=== PATIENT | male | born 1975 | race Two or more races ===

== ENCOUNTER 2023-06-20 05:25 | Inpatient (IN) | payer OTHER ==
[~2023-06-20] VITALS: Ht 170.2 cm; Wt 103.9 kg
[~2023-06-20 05:25] MED LIST: DULERA 100 MCG/13 GM; FENOFIBRATE130 MG; LEVSIN/SL0.125 MG SL; PEPCID40 MG PO; PHENERGAN25 MG PO; TOPROL XL50 M1; VERAPAMIL SR240 MG
--- NOTE | 2023-06-20 05:49 | NUR ---
SE RECIBE PACIENTE ALERTA Y ORIENTADO X 3 ESFERAS EL CUAL INDICA QUE DESDE YG PRESENTA DOLOR EN COSTADO CHU. NO REFIERE VOMITOS NI DIARREAS. INDICA QUE EN LABORATORIOS RECIENTES LA CREATININA SE ENCUENTRA ELEVADA.
[2023-06-20] MEDS ORDERED: KETOROLAC TROMETHAMINE 30 MG VIAL IV STA (07:09)
[2023-06-20] MEDS ORDERED: MEPERIDINE HCL/PF 50 MG/ML VIAL IM STA (07:09)
[2023-06-20] MEDS ORDERED: PROMETHAZINE HCL 50 MG/ML AMPUL IM STA (07:10)
--- NOTE | 2023-06-20 07:36 | NUR ---
SE LE ORIENTA A PTE SOBRE TRATAMIENTO E INSTRUCCIONES A SEGUIR, ONEYDA REFIERE ENTENDER. SE COLECTA MUESTRAS Y SE ADMINISTRA MEDICAMENTO CHRISTAL ORDEN MEDICA
[2023-06-20 08:08] LABS: HEMATOCRIT 33.3 % (39.0-48.0); HEMOGLOBIN 11.1 g/dL (13-16.00); MEAN CELL VOLUME 85.6 fL (80.0-100.00); MEAN CORPUSCULAR HEMOGLOBIN 28.5 pg (27.00-32.0); MEAN CORPUSCULAR HGB CONC 33.2 g/dl (32.0-36.0); PLATELET COUNT 156 K/uL (150-450); RED BLOOD COUNT 3.89 M/uL (4.00-6.00); RED CELL DISTRIBUTION WIDTH 14.7 % (11.5-14.5)
[2023-06-20 08:45] LABS: CALCIUM 9.2 mg/dL (8.5-10.1); POTASSIUM 5.33 mEq/L (3.5-5.1)
[2023-06-20 09:12] LABS: PH,URINE 5.5 (5.0-8.0); URINE APPEARANCE Cloudy; URINE BILIRRUBIN Negative (NEGATIVE); URINE BLOOD Small; URINE COLOR Yellow; URINE GLUCOSE Negative (NEGATIVE); URINE LEUKOCYTE Negative; URINE NITRATE Negative; URINE UROBILINOGEN 0.2 E.U./dl
[2023-06-20 09:16] LABS: URINE BACTERIA 17.6 uL (0.0-1933); URINE RBC 19.2 uL (0.0-20.8); URINE WBC 7.8 uL (0.0-23.2)
[2023-06-20 10:02] LABS: URINE PROTEIN 300 (NEGATIVE)
[2023-06-20 10:22] LABS: CREATININE SERUM 5.42 mg/dL (0.70-1.30); GFR 11.34
[2023-06-20] MEDS ORDERED: CEFTRIAXONE SODIUM 1,000 MG VIAL IV SCH (17:12)
[2023-06-20] MEDS ORDERED: LEVALBUTEROL HCL 1.25 MG/3 ML SOLUTION IH PRN (17:15)
[2023-06-20] MEDS ORDERED: ONDANSETRON HCL 4 MG in 0.9 % SODIUM CHLORIDE 50 ML IV PRN (17:15)
[2023-06-20] MEDS ORDERED: ACETAMINOPHEN 500 MG GEL..CAP PO PRN (17:15)
[2023-06-20] MEDS ORDERED: MORPHINE SULFATE 4 MG/ML VIAL IV PRN (17:15)
[2023-06-20] MEDS ORDERED: hydrALAZINE HCL 20 MG VIAL IV PRN (17:15)
[2023-06-20] MEDS ORDERED: 0.9 % SODIUM CHLORIDE 1,000 ML IV SCH (17:15)
[2023-06-20] MEDS ORDERED: FAMOTIDINE/PF 20 MG in 0.9 % SODIUM CHLORIDE 8 ML IV PUSH SCH (21:00)
[2023-06-21 06:19] LABS: INR 1.03; PARTIAL THROMBOPLASTIN TIME 37.7 SECONDS (22.0-34.0); PROTHROMBIN TIME 10.8 SECONDS (9.0-11.5)
[2023-06-21 08:42] LABS: HEMATOCRIT 34.3 % (39.0-48.0); HEMOGLOBIN 11.6 g/dL (13-16.00); MEAN CELL VOLUME 87.5 fL (80.0-100.00); MEAN CORPUSCULAR HEMOGLOBIN 29.5 pg (27.00-32.0); MEAN CORPUSCULAR HGB CONC 33.7 g/dl (32.0-36.0); PLATELET COUNT 196 K/uL (150-450); RED BLOOD COUNT 3.92 M/uL (4.00-6.00); RED CELL DISTRIBUTION WIDTH 14.4 % (11.5-14.5)
[2023-06-21 08:49] LABS: ALBUMIN 2.4 gm/dL (3.4-5.0); BILIRUBIN TOTAL 0.54 mg/dL (0.3-1.2); BILIRUBIN,CONJUGATED 0.12 mg/dL (0.0-0.2); BILIRUBIN,UNCONJUGATED 0.42 mg/dL (0.0-0.6); CALCIUM 8.8 mg/dL (8.5-10.1); CHOL HDL RATIO 6.5 (0-5.0); GLOBULINA 4.4 G/DL (2.4-3.5); TOTAL PROTEIN 6.8 gm/dL (6.4-8.2)
[2023-06-21] MEDS ORDERED: ENOXAPARIN SODIUM 40 MG/0.4 ML SYRINGE SUBCUTANEO SCH ×2 (09:00)
[2023-06-21] MEDS ORDERED: VERAPAMIL HCL 240 MG TABLET.SA PO SCH (09:00)
[2023-06-21 09:23] LABS: C-REACTIVE PROTEIN 15.5 MG/DL (0.00-0.29); CREATININE SERUM 4.89 mg/dL (0.70-1.30); GFR 12.77; POTASSIUM 5.92 mEq/L (3.5-5.1)
[2023-06-21 09:44] LABS: ERYTHROCYTE SEDIMENTATION RATE > 130 mm/hr
[2023-06-21] MEDS ORDERED: AZITHROMYCIN 500 MG VIAL IV SCH (12:49)
[2023-06-21] MEDS ORDERED: LEVALBUTEROL HCL 1.25 MG/3 ML SOLUTION IH SCH (13:00)
[2023-06-21] MEDS ORDERED: SODIUM CHLORIDE 0.45 % 1,000 ML IV SCH (13:30)
[2023-06-21] MEDS ORDERED: SODIUM POLYSTYRENE SULFONATE 15 G/4 TSP TSP PO SCH (17:00)
[2023-06-21 21:13] LABS: PH,URINE 5.5 (5.0-8.0); URINE APPEARANCE Clear; URINE BILIRRUBIN Negative (NEGATIVE); URINE BLOOD Trace; URINE COLOR Yellow; URINE GLUCOSE Negative (NEGATIVE); URINE LEUKOCYTE Negative; URINE NITRATE Negative
[2023-06-21 21:17] LABS: URINE BACTERIA 25.1 uL (0.0-1933); URINE EPITHELIAL CELLS 10.9 uL (0.0-38.8); URINE RBC 3.4 uL (0.0-20.8); URINE WBC 11.5 uL (0.0-23.2)
[2023-06-21 21:18] LABS: URINE PROTEIN 300 (NEGATIVE)
[2023-06-22 07:23] LABS: ALBUMIN 2.2 gm/dL (3.4-5.0); CALCIUM 8.8 mg/dL (8.5-10.1); GFR 13.3; PHOSPHOROUS 5.3 mg/dL (2.5-4.9); POTASSIUM 5.28 mEq/L (3.5-5.1)
[2023-06-22 07:51] LABS: CREATININE SERUM 4.72 mg/dL (0.70-1.30)
[2023-06-22] MEDS ORDERED: FAMOTIDINE/PF 20 MG in 0.9 % SODIUM CHLORIDE 8 ML IV PUSH SCH (09:00)
[2023-06-22] MEDS ORDERED: ENOXAPARIN SODIUM 30 MG/0.3 ML SYRINGE SUBCUTANEO SCH (09:00)
[2023-06-22] MEDS ORDERED: TUBERCULIN,PURIF.PROT.DERIV. 10 SKIN.TEST SKIN.TEST ID ONE (12:30)
[2023-06-22] MEDS ORDERED: METROnidazole 500 MG TABLET PO SCH (17:00)
[2023-06-22] MEDS ORDERED: LINEZOLID 600 MG TABLET PO SCH (21:00)
[2023-06-23 07:12] LABS: ALBUMIN 2.1 gm/dL (3.4-5.0); BILIRUBIN TOTAL 0.31 mg/dL (0.3-1.2); CALCIUM 8.4 mg/dL (8.5-10.1); GFR 16.25; GLOBULINA 4.1 G/DL (2.4-3.5); POTASSIUM 4.58 mEq/L (3.5-5.1); TOTAL PROTEIN 6.2 gm/dL (6.4-8.2)
[2023-06-23 07:15] LABS: CREATININE SERUM 3.97 mg/dL (0.70-1.30)
[2023-06-23] MEDS ORDERED: fentaNYL CITRATE 50 MCG/ML AMPUL IV PUSH ONE (14:00)
[2023-06-23] MEDS ORDERED: MIDAZOLAM HCL 2 MG/2 ML VIAL IV PUSH ONE (14:00)
[2023-06-24] MEDS ORDERED: FAMOtidine 20 MG TABLET PO SCH (09:00)
[2023-06-24 15:53] LABS: CREATININE SERUM 3.92 mg/dL (0.8-1.3)
[2023-06-24] MEDS ORDERED: DOXAZOSIN MESYLATE 2 MG TABLET PO SCH (21:00)
[2023-06-25 04:41] LABS: HEMATOCRIT 29.8 % (39.0-48.0); HEMOGLOBIN 9.9 g/dL (13-16.00); MEAN CORPUSCULAR HEMOGLOBIN 28.6 pg (27.00-32.0); MEAN CORPUSCULAR HGB CONC 33.3 g/dl (32.0-36.0); PLATELET COUNT 273 K/uL (150-450); RED BLOOD COUNT 3.46 M/uL (4.00-6.00); RED CELL DISTRIBUTION WIDTH 14.7 % (11.5-14.5)
[2023-06-25 05:01] LABS: ALBUMIN 2.1 gm/dL (3.4-5.0); BILIRUBIN TOTAL 0.24 mg/dL (0.3-1.2); CALCIUM 8.4 mg/dL (8.5-10.1); CREATININE SERUM 3.88 mg/dL (0.70-1.30); GFR 16.68; POTASSIUM 4.92 mEq/L (3.5-5.1); TOTAL PROTEIN 6.1 gm/dL (6.4-8.2)
[2023-06-26 08:25] LABS: URINE PROT QUANT 24HR 136.8 MG/DL
[2023-06-26 08:31] LABS: URINE PROT QUANT 24 HR 3967.2 MG/24HR (42-225)
[2023-06-28 08:22] LABS: ALBUMIN 2.1 gm/dL (3.4-5.0); BILIRUBIN TOTAL 0.2 mg/dL (0.3-1.2); CALCIUM 8.4 mg/dL (8.5-10.1); CREATININE SERUM 3.44 mg/dL (0.70-1.30); GFR 19.17; GLOBULINA 4.2 G/DL (2.4-3.5); TOTAL PROTEIN 6.3 gm/dL (6.4-8.2)
[2023-06-28 08:52] LABS: POTASSIUM 6.09 mEq/L (3.5-5.1)
[2023-06-28] MEDS ORDERED: SODIUM POLYSTYRENE SULFONATE 15 G/4 TSP TSP PO SCH ×2 (09:27→12:00)
[2023-06-29 07:42] LABS: CALCIUM 8.4 mg/dL (8.5-10.1); CREATININE SERUM 3.15 mg/dL (0.70-1.30); GFR 21.22; POTASSIUM 4.89 mEq/L (3.5-5.1)
[2023-06-29] MEDS ORDERED: DOXAZOSIN MESYLATE 2 MG TABLET PO SCH (09:00)
[2023-06-29] MEDS ORDERED: CEFTRIAXONE SODIUM 2,000 MG in 0.9 % SODIUM CHLORIDE 100 ML IV SCH (09:15)
[2023-06-29] MEDS ORDERED: MIDAZOLAM HCL 2 MG/2 ML VIAL IV PUSH ONE (17:30)
[2023-06-29] MEDS ORDERED: fentaNYL CITRATE 50 MCG/ML AMPUL IV PUSH ONE (17:30)
[2023-06-29 22:00] LABS: PLEURAL FLUID APPEARANCE TURBID; PLEURAL FLUID COLOR RED-BLOODY
[2023-06-29 22:24] LABS: TP PLEURAL FLUID 4.2 g/dl
[2023-06-29 22:36] LABS: MONONUCLEAR 88 %; POLYMORPHONUCLEAR 12 %
[2023-07-01 06:22] LABS: HEMATOCRIT 30.2 % (39.0-48.0); MEAN CELL VOLUME 87.1 fL (80.0-100.00); MEAN CORPUSCULAR HEMOGLOBIN 28.9 pg (27.00-32.0); MEAN CORPUSCULAR HGB CONC 33.1 g/dl (32.0-36.0); PLATELET COUNT 307 K/uL (150-450); RED BLOOD COUNT 3.47 M/uL (4.00-6.00); RED CELL DISTRIBUTION WIDTH 14.5 % (11.5-14.5)
[2023-07-01 06:55] LABS: CALCIUM 8.2 mg/dL (8.5-10.1); CREATININE SERUM 3.19 mg/dL (0.70-1.30); GFR 20.91; POTASSIUM 5.06 mEq/L (3.5-5.1)
[2023-07-02] MEDS ORDERED: METHYLPREDNISOLONE SOD SUCC 125 MG VIAL IV SCH (18:30)
[2023-07-04 11:11] LABS: CYCLIC CITRULLINE PEPTIDE < 2 units (0-19)
[2023-07-05 05:32] LABS: ALBUMIN 2.5 gm/dL (3.4-5.0); BILIRUBIN TOTAL 0.19 mg/dL (0.3-1.2); CALCIUM 8.8 mg/dL (8.5-10.1); CREATININE SERUM 3.67 mg/dL (0.70-1.30); GFR 17.79; GLOBULINA 3.8 G/DL (2.4-3.5); PHOSPHOROUS 3.8 mg/dL (2.5-4.9); POTASSIUM 5.85 mEq/L (3.5-5.1); TOTAL PROTEIN 6.3 gm/dL (6.4-8.2)
[2023-07-05] MEDS ORDERED: PREDNISONE 20 MG TABLET PO SCH (11:35)
[2023-07-05] MEDS ORDERED: PREDNISOLONE 15 MG/5 ML ML PO SCH (11:43)
[2023-07-05 23:03] LABS: ALBUMIN 2.6 gm/dL (3.4-5.0); ALKALINE PHOSPHATASE 61 U/L (50-136); ALT/SGPT 18 U/L (12-78); BILIRUBIN TOTAL 0.14 mg/dL (0.3-1.2); BLOOD UREA NITROGEN 72 mg/dL (7-18); BUN CREA RATIO 19 (7.0-25.0); CALCIUM 8.3 mg/dL (8.5-10.1); CARBON DIOXIDE 20 mEq/L (21-32); CREATININE SERUM 3.87 mg/dL (0.70-1.30); GFR 16.73; GLOBULINA 3.7 G/DL (2.4-3.5); POTASSIUM 4.99 mEq/L (3.5-5.1); SODIUM 144 mmol/L (136-145); TOTAL PROTEIN 6.3 gm/dL (6.4-8.2)
[2023-07-05 23:04] LABS: ANION GAP 12 (10.0-20.0); OSMOLALITY SERUM 319 MOSM/KG (275-295)
[2023-07-05 23:05] LABS: CHLORIDE 117 mmol/L (98-107); GLUCOSE FASTING 292 mg/dL (65-100)
[2023-07-05 23:06] LABS: AST/SGOT < 3 U/L (15-37)
[2023-07-06] MEDS ORDERED: CITRIC ACID/SODIUM CITRATE 30 ML BLIST.PACK PO SCH (07:00)
[2023-07-06] MEDS ORDERED: CEFTRIAXONE SODIUM 2,000 MG in 0.9 % SODIUM CHLORIDE 100 ML IV SCH (09:08)
[2023-07-07 21:05] LABS: anti MPO AB < 0.2 units (0.0-0.9); anti pr3 < 0.2 units (0.0-0.9); c anca <1:20 titer (Neg:<1:20); p anca <1:20 titer (Neg:<1:20)
[2023-07-08 06:55] LABS: CALCIUM 8.2 mg/dL (8.5-10.1); CREATININE SERUM 3.16 mg/dL (0.70-1.30); GFR 21.14; POTASSIUM 4.71 mEq/L (3.5-5.1)
[2023-07-08 07:22] LABS: HEMATOCRIT 31.1 % (39.0-48.0); HEMOGLOBIN 10.4 g/dL (13-16.00); MEAN CELL VOLUME 86.4 fL (80.0-100.00); MEAN CORPUSCULAR HEMOGLOBIN 28.8 pg (27.00-32.0); MEAN CORPUSCULAR HGB CONC 33.4 g/dl (32.0-36.0); PLATELET COUNT 253 K/uL (150-450); RED CELL DISTRIBUTION WIDTH 15.2 % (11.5-14.5)
== END 2023-07-09 14:19 | disposition home or self-care (01) | DRG 682 ==
LOC: ER 05:25 → MEDI 17:36
PROVIDERS: General Practice; Internal Medicine; Internal Medicine Nephrology; Radiology Vascular & Interventional Radiology; ADMIT Internal Medicine; ATTEND Internal Medicine
PROC: BW21ZZZ Computerized Tomography (CT Scan) of Abdomen and Pelvis (ICD-10-PCS; 2023-06-20)
PROC: BW24ZZZ Computerized Tomography (CT Scan) of Chest and Abdomen (ICD-10-PCS; 2023-06-21)
PROC: 0B9J3ZX Drainage of Left Lower Lung Lobe, Percutaneous Approach, Diagnostic (ICD-10-PCS; principal; 2023-06-29)
PROC: BW24ZZZ Computerized Tomography (CT Scan) of Chest and Abdomen (ICD-10-PCS; 2023-07-08)
DX: N17.9 Acute kidney failure, unspecified (principal); J18.9 Pneumonia, unspecified organism; J85.2 Abscess of lung without pneumonia; J96.00 Acute respiratory failure, unspecified whether with hypoxia or hypercapnia; E87.5 Hyperkalemia; D72.829 Elevated white blood cell count, unspecified; J06.9 Acute upper respiratory infection, unspecified; I10 Essential (primary) hypertension; N18.9 Chronic kidney disease, unspecified; D49.1 Neoplasm of unspecified behavior of respiratory system; J44.9 Chronic obstructive pulmonary disease, unspecified; B95.61 Methicillin susceptible Staphylococcus aureus infection as the cause of diseases classified elsewhere; R22.2 Localized swelling, mass and lump, trunk